=== PATIENT | female | born 1985 | race Two or more races ===

== ENCOUNTER 2023-09-06 23:09 | Emergency (ER) | payer BC ==
[2023-09-06 23:32] VITALS: BP 124/77; PULSE 85; RESP 20; TEMP 98.3; BMI 26.4
[2023-09-07] MEDS: SODIUM CHLORIDE 0.9% 500 ML INFUS.BAG IV ONE (00:09)
[2023-09-07 00:10] LABS: BASO % 0.9 % (0-2.0); EOS % 1.2 % (0-4.5); HEMATOCRIT 26.2 % (32.4-45.2); HEMOGLOBIN 8.2 GM/dL (10.7-15.3); LYMPH % 54.2 % (8-40); MCH 20.3 pg (25.7-33.7); MCHC 31.2 g/dl (32.0-36.0); MEAN CELL VOLUME 65.1 fl (80-96); MEAN PLT VOLUME 8.1 fl (7.5-11.1); MONO % 7.9 % (3.8-10.2); NEUT % 35.8 % (42.8-82.8); PLATELET COUNT 259 10^3/uL (134-434); RBC 4.03 M/mm3 (3.60-5.2); RDW 20.7 % (11.6-15.6); WHITE BLOOD COUNT 4.2 K/mm3 (4.0-10.0)
[2023-09-07 00:41] LABS: POTASSIUM 4.4 mmol/L (3.5-5.1)
[2023-09-07 00:43] LABS: CALCIUM 8.7 mg/dL (8.5-10.1)
[2023-09-07 00:44] LABS: ALBUMIN 3.5 g/dl (3.4-5.0); BLOOD UREA NITROGEN 12.7 mg/dL (7-18)
[2023-09-07 00:47] LABS: CREATININE 1.1 mg/dL (0.55-1.3)
[2023-09-07 00:48] LABS: BILIRUBIN,TOTAL 0.2 mg/dL (0.2-1); TOT PROT 7.5 g/dl (6.4-8.2)
[2023-09-07 02:50] LABS: ANISOCYTOSIS 2+; MACROCYTOSIS 0
== END 2023-09-07 01:10 | disposition home or self-care (01) ==
LOC: JER 23:09
DX: R10.9 Unspecified abdominal pain (principal); R11.10 Vomiting, unspecified; R19.7 Diarrhea, unspecified; J10.1 Influenza due to other identified influenza virus with other respiratory manifestations; Z20.822 Contact with and (suspected) exposure to COVID-19
CPT/HCPCS: 0241U-QW; 36415; 80053; 83690; 84703; 85025; 99283-25